=== PATIENT | female | born 1970 | race American Indian/Alaskan Native ===

== ENCOUNTER 2018-02-14 22:41 | Emergency (ER) | payer OTHER ==
[2018-02-15 00:08] VITALS: BP 133/90
[2018-02-15] MEDS ORDERED: MOTRIN PO ONE ×2 (00:08→07:38)
--- NOTE | 2018-02-15 07:32 | Emergency Department Report ---
HPI - General Chief Complaint: Dental/Oral Time Seen by Provider: 02/15/18 07:25 - HPI HPI: This is a 47-year-old female here report that she is having toothache to her right upper tooth and report that it is making her jaw hurt. She said this has been going on for 17 days on and off and is getting worse. She says she has a dentist in [place] but she is here for now and the pain is getting worse she cannot take it anymore. Pain is 8/10 and achy worse with opening her mouth and eating. Denies any fever or chills. Denies any cough or congestion. Denies any sore throat or drooling. She received Motrin in triage at 12:08 AM this morning and she said it helped her pain down to 4/10 but now her pain is back to 8/10. ED Past Medical Hx - Past Medical History Previous Medical History?: No - Surgical History Past Surgical History?: No Additional Surgical History: C-sections X 5, Ectopic - Family History Family history: hypertension - Social History Smoking Status: Current Every Day Smoker Substance Use Type: None - Medications Home Medications: Home Medications Medication Instructions Recorded Confirmed Last Taken Type Acetaminophen/Codeine [Tylenol 1 tab PO Q6H PRN #14 tab 02/15/18 Unknown Rx /Codeine # 3 tab] Clindamycin [Clindamycin CAP] 300 mg PO Q8H 10 Days #30 cap 02/15/18 Unknown Rx Ibuprofen [Motrin] 800 mg PO Q8HR PRN #15 tablet 02/15/18 Unknown Rx ED Review of Systems ROS: Stated complaint: TYOOTHACHE Other details as noted in HPI Constitutional: denies: chills, fever Eyes: denies: eye pain, eye discharge ENT: denies: ear pain, throat pain, congestion Respiratory: denies: cough, shortness of breath, SOB with exertion, SOB at rest , stridor, wheezing Cardiovascular: denies: chest pain, palpitations Gastrointestinal: denies: nausea, vomiting Genitourinary: denies: discharge Musculoskeletal: denies: back pain Skin: denies: rash, lesions Neurological: denies: headache Physical Exam - Physical Exam Vital Signs: Vital Signs 02/15/18 00:03 Temperature 98 F Pulse Rate 70 Respiratory 16 Rate Blood Pressure 133/90 O2 Sat by Pulse 100 Oximetry General: This is a 47-year-old female well-nourished well-developed in no acute distress Physical Exam: Head: Normocephalic atraumatic Ears:BIateral TM pearly-engle Ra EAC with normal exam. No mastoid bone tenderness. Mouth: Moist, no pharyngeal erythema or exudate . No tonsillar enlargement.. UVULA midline and oral airways patent. No peritonsillar abscess. Patient with multiple medicine teeth. She has multiple caries. Positive gingivitis. Tooth #3 with cavity, tenderness to palpate at the gumline. No induration. No facial abnormalities and patient able to open and close her mouth without any difficulties. Neck: Nontender to palpate, supple, normal range of motion. No adenopathy. No c- spine tenderness. Nose: Bilateral nasal mucosa normal exam. Maxillary and frontal sinuses non- tender to palpate. Eyes: Bilateral Sclerae and conjunctiva without injection. Lungs: Clear to auscultate bilaterally, no rhonchi wheezes or rales. Normal work of breathing and no chest wall tenderness CV: S1, S2. Regular rate and rhythm negative murmur. Capillary refill is less than 3 seconds Skin: Clean dry and intact, no rashes or lesions Psych: Normal mood and behavior ED Course Vital Signs 02/15/18 00:03 Temperature 98 F Pulse Rate 70 Respiratory 16 Rate Blood Pressure 133/90 O2 Sat by Pulse 100 Oximetry - Reevaluation(s) Reevaluation #1: 02/15/18 07:46 Patient given Motrin 800 mg in triage at 12:08 AM which she said helped her pain but now her pain is best that she was given Motrin 800 mg by mouth along with clindamycin 300 mg by mouth for gingivitis and dental pain. ED Medical Decision Making - Medical Decision Making This is a -year-old female here report that she is having dental pain and is been ongoing on and off for 17 days and her dentist is in [place]. She has no dentist here and the pain is getting worse so she is here for evaluation. Assessment/plan 1: Toothache #3 2: Gingivitis 3: Dental caries Patient was given Motrin 2 and emergency room she saw that she received 800 mg at 12 AM . Is also given an additional 800 mg after evaluating her this morning. Patient was also given clindamycin 300 mg by mouth for gingivitis and dental caries. I instructed patient that I refer her to [facility] clinic that she should call tomorrow to schedule an appointment for follow-up visit and let them know that you were in the emergency room and started on antibiotic. She voiced understanding. I explained medication and treatment plans her and she voiced understanding. Patient discharged home in stable condition vital signs are stable she is afebrile and I told her that I cannot give her anything stronger because she will be driving and she understands. Patient discharged home with prescription for Motrin, Tylenol No. 3 and clindamycin. Critical care attestation.: If time is entered above; I have spent that time in minutes in the direct care of this critically ill patient, excluding procedure time. ED Disposition Clinical Impression: Gingivitis, Dental caries, Tooth ache Disposition: TO HOME OR SELFCARE Is pt being admited?: No Does the pt Need Aspirin: No Condition: Stable Instructions: Dental Caries (ED), Toothache (ED), Gingivitis (ED) Additional Instructions: Please follow up with dentist as discussed. Call [facility] dental clinic tomorrow to schedule an appointment Take Motrin for mild to moderate pain and please take this medication with food. Take Tylenol No. 3 for severe pain and please do not drive or operate heavy machinery while taking this medication. Take clindamycin as prescribed. Please see floss twice daily Gargle Listerine mouthwash twice daily Referrals: [facility] [Outside] - 3-5 Days [facility] [Outside] - 3-5 Days Forms: Work/School Release Form(ED)
[2018-02-15] MEDS ORDERED: CLEOCIN PO ONE (07:39)
== END 2018-02-15 08:08 | disposition home or self-care (01) ==
LOC: ED 22:41
DX: K02.9 Dental caries, unspecified (principal); K05.00 Acute gingivitis, plaque induced; F17.200 Nicotine dependence, unspecified, uncomplicated
CPT/HCPCS: 99282